=== PATIENT | female | born 2000 ===

== ENCOUNTER 2023-06-21 20:01 | Outpatient (REF) | payer MEDICAID, OTHER, SELFPAY ==
[2023-06-22 07:11] LABS: CT PCR NOT DETECTED (Not Detect.); NG PCR NOT DETECTED (Not Detect.)
== END 2023-06-21 20:02 | disposition home or self-care (01) ==
LOC: HO.HHCLNP 20:01
PROVIDERS: Visit Provider Advanced Practice Midwife
DX: Z11.3 Encounter for screening for infections with a predominantly sexual mode of transmission (principal)
CPT/HCPCS: 0353U